=== PATIENT | female | born 1995 | race Caucasian/White ===

== ENCOUNTER → 2019-06-30 | Outpatient (REF) | payer OTHER, MEDICAID ==
[2019-06-30 11:19] LABS: BASO % 0.2 % (0.0-1.0); EOS # 0.2 10^3/uL (0.0-0.5); EOS % 1.5 % (0.0-3.0); LYMPH # 2.8 10^3/uL (1.5-5.0); MEAN CORPUSCULAR HGB CONC 32.6 g/dl (32.0-36.5); MONO # 0.7 10^3/uL (0.0-0.8); MONO % 5.5 % (0.0-5.0); NEUTROPHILS # 8.4 10^3/uL (1.5-8.5); NEUTROPHILS % 69.5 % (36.0-66.0); PLATELET COUNT, AUTOMATED 398 10^3/uL (150-450); RED BLOOD COUNT 4.83 10^6/uL (4.00-5.40)
[2019-06-30 12:46] LABS: HEPATITIS C VIRUS ABY INDEX 0.1 INDEX (<0.8); HIV 1&2 SCREEN CENTAUR NEGATIVE (NEGATIVE); RUBELLA IgG QUALITATIVE EQUIVOCAL (IMMUNE)
[2019-06-30 13:30] LABS: HEMOGLOBIN A1c 5.6 %
[2019-06-30 15:44] LABS: CHLAMYDIA DNA AMPLIFICATION NEGATIVE (NEGATIVE); GC DNA AMPLIFICATION NEGATIVE (NEGATIVE)
== END ==
LOC: M LABDRAWP 09:52
PROVIDERS: ATTEND Advanced Practice Midwife
DX: Z34.81 Encounter for supervision of other normal pregnancy, first trimester (principal); Z3A.01 Less than 8 weeks gestation of pregnancy

== ENCOUNTER → 2019-07-26 | Outpatient (REF) | payer OTHER, MEDICAID | LOC: M LAB REF 16:56 | PROVIDERS: ATTEND Advanced Practice Midwife | DX: Z34.82 Encounter for supervision of other normal pregnancy, second trimester (principal); Z3A.00 Weeks of gestation of pregnancy not specified ==

== ENCOUNTER → 2019-09-04 | Outpatient (CLI) | payer OTHER, MEDICAID ==
[~2019-09-04] MED LIST: ALBU83IN NEB; AMOX500C PO; AUGM875T28 PO; BUSP5TA PO; HYDR50TA70 PO; KEFL500C17 PO; LEXA1TAB PO; MUCI600T31 PO; ONDA4TAB5 PO; PRED20TA PO; PREN29TA4 PO; PROAAER10 INH; TRAZ-186 PO; prenatal
--- NOTE | 2019-09-05 07:29 | REP ---
Clinical: Anatomical evaluation. Comparison: 08/08/2019 . Findings: Examination demonstrates a single live intrauterine in transverse (head to maternal left) presentation. motion is identified by technologist. Placenta is noted anterior and grade zero without evidence for placenta previa or abruption. Amniotic fluid volume is normal. Cervix measures 4.8 cm in length and appears closed. No evidence for nuchal cord. Gestational age by LMP 22 weeks 0 days with ELIO 01/08/2020 . Gestational age by current measurements 21 weeks 6 days with ELIO 01/09/2020 . FHR equals 147 beats per minute. Estimated weight 502 grams ( 59th percentile). Anatomical assessment demonstrates normal structures including cranium, choroid plexus, cavum, cerebellum/posterior fossa, diaphragm, stomach, cord insertion/three-vessel cord, kidneys/bladder, spine, and extremities. Impression: 1. Single live intrauterine in transverse lie demonstrating appropriate interval growth. 2. Limited evaluation of the facial features, lungs, and heart/ventricular outflow tracts. Remainder of the anatomical assessment is complete and normal. Electronically Signed by Bishnu Dockery MD 09/05/2019 07:21 A
== END ==
LOC: M RAD 16:19
PROVIDERS: ATTEND Specialist
DX: Z34.82 Encounter for supervision of other normal pregnancy, second trimester (principal); Z3A.21 21 weeks gestation of pregnancy

== ENCOUNTER → 2019-09-29 | Outpatient (CLI) | payer OTHER, MEDICAID ==
[~2019-09-29] MED LIST changes: +ONDA-83 PO; -ONDA4TAB5 PO
--- NOTE | 2019-09-29 13:20 | REP ---
Obstetric sonography: History: Supervision of followup anatomy. Findings: Scanning through the gravid uterus demonstrates a viable single intrauterine gestation in a cephalic lie. heart rate is recorded at 140 beats per minute. An anterior low lying placenta is seen grade 1 without evidence of previa. Amniotic fluid is subjectively normal. Closed cervical length is measured transabdominally at 3.9 cm. The inferior edge of the placenta measures 2.1 cm from the internal cervical os on transabdominal images in the sagittal plane. No extrauterine abnormalities observed. There has been appropriate interval growth. The following anatomic structures are identified and felt to be sonographically unremarkable: cranium, choroid plexus, cavum, cerebellum and posterior fossa, nuchal fold, face and profile, lungs, four-chamber heart with left and right ventricular outflow tract views, diaphragm, left-sided stomach, abdominal wall cord insertion, three-vessel cord, kidneys and bladder, spine, upper and lower extremities. Biometry chart: BPD 6.0 cm = 24 weeks 3 days Head circumference 23.5 cm = 25 weeks 4 days Abdominal circumference 22.5 cm = 26 weeks 6 days Femur length 4.3 cm = 24 weeks 0 days Humeral length 4.0 cm = 24 weeks 2 days HC/AC ratio normal 1.04. Cephalic index 0.69 (0.70-0.86). Estimated weight 845 grams, 1 pound 13 ounces, 70th percentile for 24 weeks 6 days. Impression: Viable single intrauterine gestation at 24 weeks 6 days by today's composite sonographic criteria. ELIO by today's sonography January 13, 2020. anatomic survey is felt to be complete. Low-lying anterior placenta.
== END ==
LOC: M WHC 08:45
PROVIDERS: ATTEND Advanced Practice Midwife
DX: O34.211 Maternal care for low transverse scar from previous cesarean delivery (principal); O99.212 Obesity complicating pregnancy, second trimester; Z3A.24 24 weeks gestation of pregnancy

== ENCOUNTER → 2019-10-11 | Outpatient (REF) | payer MEDICAID ==
[2019-10-11 10:41] LABS: BASO % 0.3 % (0.0-1.0); EOS # 0.2 10^3/uL (0.0-0.5); EOS % 1.5 % (0.0-3.0); HEMATOCRIT 41.8 % (36.0-47.0); HEMOGLOBIN 13.1 g/dl (12.0-15.5); LYMPH % 16.3 % (24.0-44.0); MEAN CORPUSCULAR HEMOGLOBIN 27.6 pg (27.0-33.0); MEAN CORPUSCULAR HGB CONC 31.3 g/dl (32.0-36.5); MEAN CORPUSCULAR VOLUME 88.2 fl (80.0-96.0); MONO # 0.6 10^3/uL (0.0-0.8); MONO % 4.7 % (0.0-5.0); NEUTROPHILS # 9.5 10^3/uL (1.5-8.5); NEUTROPHILS % 76.5 % (36.0-66.0); PLATELET COUNT, AUTOMATED 408 10^3/uL (150-450); RED BLOOD COUNT 4.74 10^6/uL (4.00-5.40); WHITE BLOOD COUNT 12.4 10^3/uL (4.0-10.0)
[2019-10-11 10:56] LABS: HEMOGLOBIN A1c 5.2 %
== END ==
LOC: M PLALAB 08:10
PROVIDERS: ATTEND Advanced Practice Midwife
DX: O34.211 Maternal care for low transverse scar from previous cesarean delivery (principal); O99.212 Obesity complicating pregnancy, second trimester

== ENCOUNTER 2019-10-13 19:55 | Outpatient (CLI) | payer OTHER, MEDICAID ==
[~2019-10-13] VITALS: Ht 152.4 cm; Wt 122.5 kg
[2019-10-13 20:10] VITALS: BP 115/57
--- NOTE | 2019-10-13 21:46 | IPNPDOC ---
Text Note Date of Service The patient was seen on 10/13/19. NOTE Outpatient 24yo ELOI 01/07/2020. Presents @ 27w5d with complaints of fluid leakage and lower abdominal discomfort. Denies bleeding. VSS, NAD Abdomen obese, gravid, nontender. Pt reports discomfort at edge of pannus Spec exam neg pool, neg valsalva, neg nitrazine, neg fern. NST inconclusive due to habitus BPP 8/8, RON 13.5, footling breech at this time. Pt is reassured. Discharged home with instructions. Keep next appt VS,Fishbone, I+O VS, Fishbone, I+O Vital Signs Date Time Temp Pulse Resp B/P (MAP) Pulse Ox O2 Delivery O2 Flow Rate FiO2 10/13/19 20:10 98.3 96 16 115/57 (76) Belinda Williamson CNM Oct 13, 2019 21:46
--- NOTE | 2019-10-14 08:44 | REP ---
Clinical: well-being. Nonresponsive stress test. Comparison: 09/29/2019 . Findings: Examination demonstrates a single live intrauterine in breech presentation. motion is identified by technologist. Placenta is noted anterior and grade I without evidence for placenta previa or abruption. Amniotic fluid volume is normal. Cervix measures 4.8 cm in length and appears closed. No evidence for nuchal cord. Gestational age by LMP 27 weeks 5 days with ELIO 01/07/2020 . FHR equals 150 beats per minute. Biophysical profile score: 8/8 Amniotic fluid index: 13.5 cm (9.4 - 22.7) Umbilical cord SD ratio: 3.31 (2.60 - 4.00) Impression: Single live intrauterine in breech presentation. Biophysical profile score 8/8 Amniotic fluid volume normal. Electronically Signed by Bishnu Dockery MD 10/14/2019 08:35 A
== END 2019-10-13 21:43 | disposition home or self-care (01) ==
LOC: M LDO 19:55
PROVIDERS: ATTEND Advanced Practice Midwife
DX: O26.893 Other specified pregnancy related conditions, third trimester (principal); R10.30 Lower abdominal pain, unspecified; Z3A.27 27 weeks gestation of pregnancy

== ENCOUNTER 2019-10-31 12:00 | Emergency (ER) | payer MEDICAID, OTHER ==
[~2019-10-31] VITALS: Ht 152.4 cm; Wt 123.4 kg
[2019-10-31] MEDS ORDERED: BANO25TA (12:09)
[2019-10-31 13:33] LABS: INFLUENZA A AMPLIFICATION NEGATIVE (NEGATIVE); INFLUENZA B AMPLIFICATION NEGATIVE (NEGATIVE)
[2019-10-31 14:10] VITALS: BP 111/67
[2019-10-31] MEDS ORDERED: OSELTAMIVIR PHOSPHATE 75 MG CAP (TAMIFLU) PO ONE (14:30)
[2019-10-31] MEDS ORDERED: OSEL75CA PO (14:33)
[2019-10-31] MEDS ORDERED: MUCI600T31 PO (14:34)
== END 2019-10-31 14:44 | disposition home or self-care (01) ==
LOC: M ED 12:00
DX: Z20.828 Contact with and (suspected) exposure to other viral communicable diseases (principal); J06.9 Acute upper respiratory infection, unspecified; Z3A.30 30 weeks gestation of pregnancy; O99.513 Diseases of the respiratory system complicating pregnancy, third trimester; J45.909 Unspecified asthma, uncomplicated; Z79.899 Other long term (current) drug therapy; Z88.8 Allergy status to other drugs, medicaments and biological substances; O99.333 Smoking (tobacco) complicating pregnancy, third trimester; F17.210 Nicotine dependence, cigarettes, uncomplicated

== ENCOUNTER → 2019-12-11 | Outpatient (REF) | payer OTHER, MEDICAID ==
[~2019-12-11] MED LIST changes: +ACET-839 PO; +BANO25TA; +OSEL75CA PO
== END ==
LOC: M SFHCWAGY 13:28
PROVIDERS: ATTEND Advanced Practice Midwife
DX: O34.219 Maternal care for unspecified type scar from previous cesarean delivery (principal); Z3A.00 Weeks of gestation of pregnancy not specified

== ENCOUNTER 2019-12-25 05:31 | Inpatient (IN) | payer OTHER ==
[~2019-12-25] VITALS: Ht 152.4 cm; Wt 131.5 kg
[2019-12-25] VITALS (8 sets, daily range): BP systolic 114–153; BP diastolic 57–87
[2019-12-25] MEDS ORDERED: ceFAZolin SOD 2 GM in IV 1 EA IV ONE (06:00)
[2019-12-25] MEDS ORDERED: LR 800 ML IV ONE (06:00)
[2019-12-25] MEDS ORDERED: BICITRA 30ML SOLN UDC PO ONE (06:00)
[2019-12-25 06:34] LABS: HEMATOCRIT 40.3 % (36.0-47.0); HEMOGLOBIN 12.9 g/dl (12.0-15.5); MEAN CORPUSCULAR HEMOGLOBIN 26.7 pg (27.0-33.0); MEAN CORPUSCULAR VOLUME 83.3 fl (80.0-96.0); PLATELET COUNT, AUTOMATED 341 10^3/uL (150-450); RED BLOOD COUNT 4.84 10^6/uL (4.00-5.40); WHITE BLOOD COUNT 10.6 10^3/uL (4.0-10.0)
[2019-12-25] MEDS ORDERED: LR 1,000 ML IV SCH ×2 (07:00→08:56)
[2019-12-25] MEDS ORDERED: OXYTOCIN INJ 10 UNITS/ML VIAL (J2590) As Ordered ONE (07:11)
[2019-12-25] MEDS ORDERED: ONDANSETRON 4MG/2ML VIAL As Ordered ONE (07:11)
[2019-12-25] MEDS ORDERED: dexameTHASONE 4 MG/ML 1ML VIAL (J1100 PER 1MG) As Ordered ONE (07:11)
[2019-12-25] MEDS ORDERED: fentaNYL 100 MCG/2 ML INJECTION (J3010) As Ordered ONE (07:13)
[2019-12-25] MEDS ORDERED: MORPHINE PRES-FREE INJ 10 MG/10 ML VIAL (J2274) As Ordered ONE (07:13)
[2019-12-25] MEDS ORDERED: diphenhydrAMINE 50MG/ML VIAL (J1200) IV PRN ×2 (07:44→10:15)
[2019-12-25] MEDS ORDERED: METOCLOPRAMIDE INJ 10MG/2ML VIAL (J2765 PER 1) IV PRN (07:44)
[2019-12-25] MEDS ORDERED: NALOXONE INJ 0.4MG/1ML VIAL (J2310 PER 1MG) IV PRN ×2 (07:44)
[2019-12-25] MEDS ORDERED: ONDANSETRON 4MG/2ML VIAL IV PRN ×2 (07:44→10:15)
[2019-12-25] MEDS ORDERED: NALBUPHINE HCL 10 MG/ML AMP (J2300) IV PRN (07:44)
[2019-12-25] MEDS ORDERED: ePHEDrine SULFATE 25 MG/5 ML(5MG/ML) SYRINGE As Ordered ONE (07:51)
[2019-12-25] MEDS ORDERED: PHENYLephrine HCL 500 MCG/5 ML (100MCG/ML) SYRINGE (J2370) As Ordered ONE (08:24)
[2019-12-25] MEDS ORDERED: OXYTOCIN 30 UNITS IN 0.9% NaCl 500ML IV BAG (J2590) As Ordered ONE (08:51)
[2019-12-25] MEDS ORDERED: OXYTOCIN DRIP 30 UNITS in IV 1 EA IV SCH (08:56)
[2019-12-25] MEDS ORDERED: ONDANSETRON 4 MG TAB PO PRN (09:00)
[2019-12-25] MEDS ORDERED: PERCOCET 5MG/325MG TAB PO PRN ×2 (09:00)
[2019-12-25] MEDS ORDERED: RHOGAM 300 MCG (1500 IU) INJ (J2790) IM SCH (09:00)
[2019-12-25] MEDS ORDERED: MEASLES,MUMPS,RUBELLA VACCINE INJ (MMR-II) (90707) SC SCH (09:00)
[2019-12-25] MEDS ORDERED: DOCUSATE SODIUM 100 MG CAP PO PRN (09:00)
[2019-12-25] MEDS: PRENATAL VITAMINS CHEWABLE TABLET PO SCH (09:00)
[2019-12-25] MEDS ORDERED: HYDROMORPHONE HCL 0.5 MG/ 0.5 ML SYRINGE (J1170 PER 1) IV PRN (10:15)
[2019-12-25] MEDS ORDERED: fentaNYL 100 MCG/2 ML INJECTION (J3010) IV PRN (10:15)
[2019-12-25] MEDS ORDERED: oxyCODONE 5MG TAB PO PRN (10:15)
--- NOTE | 2019-12-25 10:54 | RO ---
DATE OF PROCEDURE: 12/25/2019 PREPROCEDURE DIAGNOSIS: 38 and 1/7 weeks gestation, prior section, pseudotumor cerebri, hypertension. POSTPROCEDURE DIAGNOSIS: 38 and 1/7 weeks gestation, prior section, pseudotumor cerebri, hypertension. PROCEDURE: Repeat low transverse section. SURGEON: Dr. Ramy Yeung CONTROLLER [employer]: Zohra Dominguez CNM ANESTHESIA: Spinal. ESTIMATED BLOOD LOSS: 600 mL. URINE OUTPUT: 100 mL. FINDINGS: 2880 gram, 6 pound 6 ounce, female , Apgars 9 and 9. Nuchal cord times one. Thin lower uterine segment with peritoneal window. Normal ovaries and fallopian tubes. OPERATIVE SUMMARY: The patient was taken to the operating room where spinal anesthesia was induced. She was prepped and draped in sterile fashion in the supine position. A Gage catheter was placed. A Pfannenstiel skin incision was made with the scalpel and carried through to the fascia. The fascia was nicked and extended. The fascia was dissected off the rectus muscles. The peritoneal cavity was entered. A bladder flap was created. The peritoneal window was noted in the lower uterine segment, it was 3-4 cm in size. Blunt dissection was used to create the hysterotomy which was extended manually. The was delivered from the vertex position without difficulty. The cord was doubly clamped and cut. The was handed off to the awaiting nurses. The placenta was expressed. The uterus was closed with #0 Vicryl in running locked fashion. A second imbricating layer of #0 Vicryl was placed. The peritoneum was closed with #2-0 Vicryl and the fascia was closed with #0 Vicryl. The deep layer was closed with #2-0 chromic. The skin was closed with #4-0 Monocryl subcuticular sutures. Sponge, instrument and needle counts were correct. Zohra Dominguez CNM, assisted throughout the procedure from beginning to end. She helped create each layer of the incision. She helped deliver the fetus and close all layers.
[2019-12-25] MEDS ORDERED: OXYC1TAB23 PO (12:02)
[2019-12-25] MEDS: KETOROLAC 30 MG/ML 1ML VIAL IV SCH ×2 (15:01→21:22)
[2019-12-25] MEDS ORDERED: ALBUTEROL SULFATE 2.5 MG/0.5 ML INH NEB SOLN NEB PRN (20:00)
[2019-12-26 02:00] VITALS: BP 120/56
[2019-12-26] MEDS: KETOROLAC 30 MG/ML 1ML VIAL IV SCH (03:52)
[2019-12-26 06:43] VITALS: BP 120/60
[2019-12-26 08:03] LABS: HEMATOCRIT 32.5 % (36.0-47.0); MEAN CORPUSCULAR HEMOGLOBIN 26.7 pg (27.0-33.0); MEAN CORPUSCULAR VOLUME 83.5 fl (80.0-96.0); PLATELET COUNT, AUTOMATED 303 10^3/uL (150-450); RED BLOOD COUNT 3.89 10^6/uL (4.00-5.40); WHITE BLOOD COUNT 12.1 10^3/uL (4.0-10.0)
[2019-12-26 08:09] LABS: HEMOGLOBIN 10.4 g/dl (12.0-15.5)
[2019-12-26] MEDS ORDERED: IBUP80TA PO (08:10)
--- NOTE | 2019-12-26 08:41 | DS.PDOC ---
Discharge Summary General Date of Admission Dec 25, 2019 at 05:31 Date of Discharge 12/26/2019 Primary Care Physician: SAMEER HANNAH MD Discharge Summary PROCEDURES PERFORMED DURING STAY: Repeat section ADMITTING DIAGNOSES: 1. IUP at 38 weeks gestation 2. Prior section with elective repeat 3. Pseudotumor cerebri DISCHARGE DIAGNOSES: 1. Repeat section. COMPLICATIONS/CHIEF COMPLAINT: Previous Section. HISTORY OF PRESENT ILLNESS: Patient is a 24-year-old female who presents for a repeat section. She is morbidly obese and has pseudotumor cerebri. Her period has been uncomplicated. She has been ambulating, eating a regu lar diet and has showered without incidence. HOSPITAL COURSE: uncomplicated. DISCHARGE MEDICATIONS: Please see below. ALLERGIES: Please see below. PHYSICAL EXAMINATION ON DISCHARGE: VITAL SIGNS: Please see below. GENERAL: A+O x3 CARDIOVASCULAR EXAMINATION: RRR. No murmurs, rubs, or gallops. RESPIRATORY EXAMINATION: regular rate and rhythm ABDOMINAL EXAMINATION: dressing is intact with 2 small areas of drainage on dressing EXTREMITIES: generalized edema bilateral feet and legs SKIN: warm, dry with no rash or unusual lesions. LABORATORY DATA: Please see below. ACTIVITY: As tolerated. DIET: regular DISCHARGE INSTRUCTIONS: 1. Patient desires to be discharged to home. Reviewed signs and symptoms to call office with or come into ED with including: mastitis, endometritis, pospartum psychosis, depression, pain management, care of her incision, dressing removal, symptoms of infection, fever, pelvic rest and hemorrhage. 2. Patient scheduled to return to office in 2 weeks for incision check and 6 weeks . 3. Discharged to home with . DISCHARGE CONDITION: Stable. Vital Signs/I&Os Vital Signs Date Time Temp Pulse Resp B/P (MAP) Pulse Ox O2 Delivery O2 Flow Rate FiO2 12/26/19 06:43 98.8 100 18 120/60 (80) 94 Room Air 12/26/19 02:00 2.0 I&O- Last 24 Hours up to 6 AM 12/26/19 05:59 Intake Total 3700 ml Output Total 1980 ml Balance 1720 ml Laboratory Data Labs 24H Laboratory Tests 2 12/26/19 07:23: Nucleated Red Blood Cells % (auto) 0.0 CBC/BMP Laboratory Tests 12/26/19 07:23 Discharge Medications Scheduled Buspirone HCl (Buspirone HCl) 5 Mg Tablet, 5 MG PO TIDP, (Reported) Prenat 115/Iron Fum/Folic/Dss ( 19 Tablet) 1 Each Tablet, 1 TAB PO QHS, (Reported) Scheduled PRN Albuterol Sulfate (Proair Hfa) 8.5 Gm Hfa.aer.ad, 2 PUFF INH PRN PRN for SOB/WHEEZING, (Reported) Ibuprofen (Ibuprofen) 800 Mg Tablet, 800 MG PO Q8HP PRN for PAIN Oxycodone HCl/Acetaminophen (Oxycodone-Acetaminophen 5-325) 1 Each Tablet, 1 TAB PO TIDP PRN for pain Allergies Coded Allergies: fluticasone (Verified Adverse Reaction, Mild, dizziness, lightheadedness, 12/11/19) KARLY LE CNM Dec 26, 2019 08:41
[2019-12-26] MEDS: PRENATAL VITAMINS CHEWABLE TABLET PO SCH (08:57)
[2019-12-26 10:00] VITALS: BP 130/75
[2019-12-26] MEDS ORDERED: IBUPROFEN 800 MG TAB PO SCH (11:00)
== END 2019-12-26 12:35 | disposition home or self-care (01) | DRG 540 ==
LOC: M LDI 05:31 → MERGE 07:30 → M OBS 10:29
PROVIDERS: ADMIT Specialist; ATTEND Specialist
PROC: 10D00Z1 Extraction of Products of Conception, Low, Open Approach (ICD-10-PCS; principal; 2019-12-25 07:30)
DX: O34.211 Maternal care for low transverse scar from previous cesarean delivery (principal); O10.02 Pre-existing essential hypertension complicating childbirth; O99.214 Obesity complicating childbirth; E66.01 Morbid (severe) obesity due to excess calories; O99.354 Diseases of the nervous system complicating childbirth; Z3A.38 38 weeks gestation of pregnancy; G93.2 Benign intracranial hypertension; Z37.0 Single live birth

== ENCOUNTER → 2020-01-09 | Outpatient (REF) | payer MEDICAID, OTHER ==
[~2020-01-09] MED LIST changes: +IBUP80TA PO; +OXYC1TAB23 PO
[2020-01-09 16:01] LABS: HEMATOCRIT 41.9 % (36.0-47.0); HEMOGLOBIN 13.2 g/dl (12.0-15.5); MEAN CORPUSCULAR HEMOGLOBIN 26.5 pg (27.0-33.0); MEAN CORPUSCULAR HGB CONC 31.5 g/dl (32.0-36.5); MEAN CORPUSCULAR VOLUME 84.1 fl (80.0-96.0); PLATELET COUNT, AUTOMATED 346 10^3/uL (150-450); RED BLOOD COUNT 4.98 10^6/uL (4.00-5.40); WHITE BLOOD COUNT 7.8 10^3/uL (4.0-10.0)
== END ==
LOC: M PLALAB 14:06
PROVIDERS: ATTEND Specialist
DX: D64.9 Anemia, unspecified (principal)

== ENCOUNTER → 2020-02-21 | Outpatient (REF) | payer MEDICAID, OTHER ==
[2020-02-21 13:28] LABS: CHOLESTEROL RISK RATIO 4.189 (<5); FREE T4 1.03 NG/DL (0.76-1.46); THYROID STIMULATING HORMONE 1.37 uIU/ML (0.358-3.740)
[2020-02-21 14:23] LABS: HEMOGLOBIN A1c 5.7 %
== END ==
LOC: M SFHCPLAZ 08:56
PROVIDERS: ATTEND Family Medicine
DX: Z00.00 Encounter for general adult medical examination without abnormal findings (principal); E66.01 Morbid (severe) obesity due to excess calories

== ENCOUNTER → 2021-01-16 | Outpatient (CLI) | payer OTHER ==
[~2021-01-16] MED LIST changes: +ISOVUE-370 76% 100ML VIAL As Ordered ONE
--- NOTE | 2021-01-16 14:52 | REP ---
INDICATION: SOLITARY PULMONARY NODULE COMPARISON: None TECHNIQUE: Axial contrast enhanced images from the thoracic inlet to the upper abdomen with coronal and sagittal reformations using 75 ml Isovue 370 intravenous contrast material. This CT examination was performed using the following dose reduction techniques: Automated exposure control, adjustment of mA and/or kv according to the patient's size, and use of iterative reconstruction technique. FINDINGS: Subtle areas of airspace disease are identified in the right perihilar and upper lung zone. Small noncalcified nodules are also identified measuring up to 2-3 mm. No effusion. No pneumothorax. Few mediastinal and right hilar lymph nodes up to 14 mm likely reactive. Tracheobronchial tree is patent. Mediastinum and cardiac silhouette are otherwise normal. IMPRESSION: Subtle airspace disease primarily involving the right perihilar and upper lung zone consistent with acute pneumonia. Follow-up to resolution recommended. Small 2-3 mm nodules likely chronic. <Electronically signed by Bishnu Dockery > 01/16/21 [id number]
[2021-01-16 15:06] LABS: BASO # 0.1 10^3/uL (0.0-0.2); BASO % 0.4 % (0.0-1.0); EOS # 0.2 10^3/uL (0.0-0.5); EOS % 1.4 % (0.0-3.0); HEMATOCRIT 44.9 % (36.0-47.0); HEMOGLOBIN 14.1 g/dl (12.0-15.5); LYMPH # 2.5 10^3/uL (1.5-5.0); LYMPH % 20.6 % (24.0-44.0); MEAN CORPUSCULAR HEMOGLOBIN 27.2 pg (27.0-33.0); MEAN CORPUSCULAR HGB CONC 31.4 g/dl (32.0-36.5); MEAN CORPUSCULAR VOLUME 86.5 fl (80.0-96.0); MONO # 0.7 10^3/uL (0.0-0.8); MONO % 5.9 % (2.0-8.0); NEUTROPHILS # 8.6 10^3/uL (1.5-8.5); NEUTROPHILS % 71.4 % (36.0-66.0); PLATELET COUNT, AUTOMATED 363 10^3/uL (150-450); RED BLOOD COUNT 5.19 10^6/uL (4.00-5.40)
[2021-01-16 15:28] LABS: ALBUMIN 3.5 GM/DL (3.2-5.2); ALT/SGPT 13 U/L (12-78); BILIRUBIN,TOTAL 0.3 MG/DL (0.2-1.0); BLOOD UREA NITROGEN 8 MG/DL (7-18); CALCIUM LEVEL 8.9 MG/DL (8.5-10.1); CARBON DIOXIDE LEVEL 25 MEQ/L (21-32); CHLORIDE LEVEL 109 MEQ/L (98-107); CREATININE FOR GFR 0.52 MG/DL (0.55-1.30); GLOMERULAR FILTRATION RATE > 60.0 (>60); GLUCOSE, FASTING 67 MG/DL (70-100); LDH LACTATE DEHYDROGENASE 282 U/L (84-246); POTASSIUM SERUM 4.4 MEQ/L (3.5-5.1); RHEUMATOID FACTOR QUANT < 10.0 IU/ML (<15.0); SODIUM LEVEL 141 MEQ/L (136-145); TOTAL PROTEIN 6.9 GM/DL (6.4-8.2)
== END ==
LOC: M RAD 13:53
PROVIDERS: ATTEND Physician Assistant
DX: R91.1 Solitary pulmonary nodule (principal); R91.8 Other nonspecific abnormal finding of lung field; R10.12 Left upper quadrant pain; K52.9 Noninfective gastroenteritis and colitis, unspecified
CPT/HCPCS: 36415; 71260; 80053; 83605; 83615; 85025; 86200; 86235; 86431; 86480; Q9967

== ENCOUNTER → 2021-08-13 | Outpatient (REF) | payer OTHER, MEDICAID ==
[~2021-08-13] MED LIST changes: -ISOVUE-370 76% 100ML VIAL As Ordered ONE
== END ==
LOC: M SFHCWAGY 13:22
PROVIDERS: ATTEND Specialist
DX: Z01.419 Encounter for gynecological examination (general) (routine) without abnormal findings (principal); Z12.4 Encounter for screening for malignant neoplasm of cervix

== ENCOUNTER → 2021-10-22 | Outpatient (CLI) | payer OTHER | LOC: M CARPUL 14:53 | PROVIDERS: ATTEND Physician Assistant | DX: R06.00 Dyspnea, unspecified (principal) ==